=== PATIENT | male | born 1980 ===

== ENCOUNTER → 2021-02-24 09:57 | Outpatient (CLI) | payer OTHER, SELFPAY ==
--- NOTE | ~2021-02-24 | US_ITS ---
EXAMINATION: US abdomen complete DATE: 02/24/2021 10:51 INDICATION: Abnormal liver function tests. TECHNIQUE: Multiple grayscale and Doppler ultrasound images of the abdomen were obtained. COMPARISON: None FINDINGS: The visualized portions of the head and body of the pancreas are normal. The abdominal aort a is normal in caliber. Inferior vena cava is normal. The liver is normal without focal lesion. No li carley surface nodularity. There is normal flow in main portal vein. The gallbladder is normal in size. No gallstones or gallbladder wall thickening. There was no sonographic Terry sign. The common duct i s normal and measures 4 mm. The kidneys are normal in size. The spleen is normal in size. IMPRESSION: 1. Normal complete abdomen ultrasound. Reviewed, dictated and finalized at location A.
== END ==
PROVIDERS: Visit Provider Emergency Medicine
DX: K82.9 Disease of gallbladder, unspecified (principal); K76.9 Liver disease, unspecified
CPT/HCPCS: 76700